=== PATIENT | female | born 1990 | race Caucasian/White ===

== ENCOUNTER 2020-02-09 14:14 | Emergency (ER) | payer BC, SELFPAY ==
[2020-02-09 14:24] VITALS: BP 147/95; PULSE 103; RESP 18; TEMP 38.5; O2SAT 100
--- NOTE | 2020-02-09 14:27 | ED.URI ---
HPI - URI/Sore Throat General Chief Complaint: Upper Respiratory Infection Stated Complaint: Sore throat Time Seen by Provider: 02/09/20 14:27 Source: patient and RN notes reviewed History of Present Illness HPI Narrative: Patient is a 30-year-old female who presents the urgent care with complaints of sore throat, fever and right ear pain. Patient states that it started morning. States that she has been taking DayQuil without much improvement. Denies of any known exposure to COVID. Denies of any nausea or vomiting. No other acute complaints. No acute distress noted. Patient read the plan of care. Related Data Home Medications Medication Instructions Recorded Confirmed ixekizumab [Taltz Autoinjector] 80 mg SUBCUT ONCE 02/09/20 02/09/20 norethindrone (contraceptive) 0.35 mg PO DAILY 02/09/20 02/09/20 Allergies Allergy/AdvReac Type Severity Reaction Status Date / Time No Known Allergies Allergy Mild Verified 02/09/20 14:21 Review of Systems Review of Systems: Narrative: CONSTITUTIONAL: Reports a fever EYES: Denies visual changes, redness, or discharge. ENT: Reports of sore throat and right ear pain CARDIOVASCULAR: Denies chest pain, palpitations, or edema. RESPIRATORY: Denies cough or dyspnea. GASTROINTESTINAL: Denies abdominal pain, nausea, vomiting, or diarrhea. GENITOURINARY: Denies dysuria or hematuria. SKIN: Denies rash or itching. MUSCULOSKELETAL: Denies back pain, joint pain, or myalgia. NEUROLOGIC: Denies headache, numbness, or weakness. All other systems reviewed are negative, except as documented in HPI. PMFSH Comments At the time of my signature, I reviewed and agree with the nursing past medical, surgical, social, and family history. There is no relevant family history pertinent to the patient complaint. Exam Narrative: Exam Narrative: GENERAL: This is a well-nourished, well-developed patient, in no apparent distress. HEAD: normocephalic, atraumatic. EYES: PERRL. Sclera clear/white. Vision is grossly intact. EARS: External ears normal, auditory canals clear and without drainage, moderately injected erythemic right TM, left TMs normal without perforation. Hearing grossly intact. NOSE: External nose normal with no obvious nasal discharge, nares without redness, no rhinorrhea. THROAT: Mucous membranes moist, moderate erythema noted posterior oropharynx with moderate postnasal drainage and mild bilateral tonsillar erythema and edema NECK: Neck supple SKIN: warm, intact with no suspicious lesions or rash, good texture and turgor. NEURO: awake, alert, and oriented to person, place and time. There were no obvious focal neurologic abnormalities. EXTREMITIES: No clubbing, cyanosis, or edema. Course Vital Signs Vital signs: Vital Signs Temperature 101.3 F H 02/09/20 14:24 Pulse Rate 103 H 02/09/20 14:24 Respiratory Rate 18 02/09/20 14:24 Blood Pressure 147/95 H 02/09/20 14:24 Pulse Oximetry 100 02/09/20 14:24 Temperature 101.3 F H 02/09/20 14:24 Pulse Rate 103 H 02/09/20 14:24 Respiratory Rate 18 02/09/20 14:24 Blood Pressure 147/95 H 02/09/20 14:24 Pulse Oximetry 100 02/09/20 14:24 Reviewed-patient is informed that they may have pre-hypertension or hypertension based on a blood pressure reading in the department. I recommend the patient call the primary care provider listed on their discharge instructions or a physician of their choice this week to arrange follow-up for further evaluation of possible pre-hypertension or hypertension. MDM - URI/Sore Throat MDM Narrative Medical decision making narrative: Reviewed lab results with the patient. She is aware that strep swab was positive. Advised patient to complete oral antibiotic regimen as prescribed. Amoxicillin will also treat right ear infection. Use an antihistamine such as Benadryl or Claritin in conjunction with Flonase nasal spray for symptom relief. Use Tylenol/ibuprofen as needed for fever pain. Increase fluid
== END 2020-02-09 14:49 | disposition home or self-care (01) ==
PROVIDERS: Emergency Provider Nurse Practitioner Family; PCP Family Medicine
DX: H66.91 Otitis media, unspecified, right ear (principal); J02.0 Streptococcal pharyngitis
CPT/HCPCS: 87880; 99213; G0463

== ENCOUNTER 2020-06-09 14:18 | Emergency (ER) | payer BC, SELFPAY ==
[2020-06-09 14:30] VITALS: BP 130/82; PULSE 74; RESP 16; TEMP 36.5; O2SAT 100
--- NOTE | 2020-06-09 14:39 | ED.EAR ---
HPI - Ear Problem General Chief complaint: Ear Stated complaint: Ear Pain Time Seen by Provider: 06/09/20 14:39 Source: patient and RN notes reviewed Mode of arrival: ambulatory Limitations: no limitations History of Present Illness HPI Narrative: 30-year-old female who presents to [facility] with complaints of pain to her right ear and her throat for the past 2 days. 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 Patient denies any fevers, cough, loss of taste or smell no nausea or myalgia symptoms. Patient states that she has had ear problems in the past and did have tubes when she was young. Patient states that she has not taken any OTC medications for her symptoms. MD Complaint: ear pain and other (sore throat) Location: right ear Duration: constant Severity: moderate Relieving factors: nothing Exacerbating factors: nothing Discharge from ear: Reports no Associated symptoms ear: rhinorrhea and other (sore throat) Treatment prior to arrival: none Related Data Home Medications Medication Instructions Recorded Confirmed ixekizumab [Taltz Autoinjector] 80 mg SUBCUT ONCE 02/09/20 02/09/20 norethindrone (contraceptive) 0.35 mg PO DAILY 02/09/20 02/09/20 Allergies Allergy/AdvReac Type Severity Reaction Status Date / Time No Known Allergies Allergy Mild Verified 02/09/20 14:21 Review of Systems Review of Systems: Narrative: CONSTITUTIONAL: Denies fever, chills, or sweats. EYES: Denies visual changes, redness, or discharge. ENT: positive for rhinorrhea, congestion, sore throat, right otalgia. CARDIOVASCULAR: Denies chest pain, palpitations, or edema. RESPIRATORY: Denies cough or dyspnea. GASTROINTESTINAL: Denies abdominal pain, nausea, vomiting, or diarrhea. GENITOURINARY: Denies dysuria or hematuria. SKIN: Chronic psoriasis rash or itching. MUSCULOSKELETAL: Denies back pain, joint pain, or myalgia. NEUROLOGIC: Denies headache, numbness, or weakness. PSYCHIATRIC: Denies anxiety or depression. All systems reviewed & are unremarkable except as noted in HPI and below PMFSH Past Medical History Medical History (Updated 06/10/20 @ 00:00 by Background Daemon) Otitis media Psoriasis Surgical History Surgical History (Updated 06/09/20 @ 14:52 by Fernanda Nielsen NP) History of placement of ear tubes Social History Social History (Updated 06/09/20 @ 14:52 by Fernanda Nielsen NP) Living arrangements: with family Gender identity (if verbalized by the patient): Female Comments At time of signature, agree with nursing past medical, surgical, social history. There is no relevant family history pertinent to the presenting complaint Exam Narrative: Exam Narrative: GENERAL: Well-appearing, well-nourished, and in no acute distress. HEAD: Normocephalic, atraumatic. EYES: PERRLA and EOMI. ENT: Nares mild redness,clear rhinorrhea no epistaxis. Mucous membranes moist.Right TM red and bulging with dull light reflex no drainage noted, Left TM normal with old scarring present good light reflex noted, no drainage, Throat red with no exudates or lesions, tonsils mildly enlarged, post nasal drainage noted. NECK: Supple. no lymphadenopathy CHEST: Clear to auscultation. No respiratory distress.SAO2 100% on room air HEART: Regular rate and rhythm. No murmur heard. Normal peripheral pulses. ABDOMEN: Soft, nontender, nondistended, normal active bowel sounds. EXTREMITIES: Normal range of motion. No edema. SKIN: Warm, dry, chronic psoriasis with flaking of scalp and forearms. NEURO: No focal deficits. Alert and oriented x3. Course Vital Signs Vital signs: Vital Signs Temperature 36.5 C 06/09/20 14:30 Pulse Rate 74 06/09/20 14:30 Respiratory Rate 16 06/09/20 14:30 Blood Pressure 130/82 06/09/20 14:30 Pulse Oximetry 100 06/09/20 14:30 Temperature 36.5 C 06/09/20 14:30 Pulse Rate 74
== END 2020-06-09 15:02 | disposition home or self-care (01) ==
PROVIDERS: Emergency Provider Registered Nurse; PCP Family Medicine
DX: H66.91 Otitis media, unspecified, right ear (principal); J02.9 Acute pharyngitis, unspecified
CPT/HCPCS: 87081; 87880; 99213; G0463

== ENCOUNTER 2022-10-25 14:19 | Outpatient (RCR) | payer OTHER, SELFPAY ==
--- NOTE | 2022-10-25 15:10 | PTOPEVAL1 ---
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 Reported Pain Level Pain Score 0: Self Report Additional Pain Score Comments Currently not hurting, when it hurt 2 weeks ago it was a 10 Assessment PT Clinical Summary Dex is a 32 year old female coming into the clinic with a diagnosis of L hip pain. Currently not in pain. Patient has negative special tests and does not appear to have an acute issue with the hip. Gave patient exercises based on tightness of muscles. Trying to hold off from therapy if not acute secondary to co-pay. Plan of Care PT Services Indicated No Treatment Frequency and discharged from skilled physical therapy. Duration These treatments will address the objective and functional deficits as defined above. The patient will be advanced safely and appropriately in order for the patient to progress towards his/her prior level of function. Additional exercises will be introduced and as well as a comprehensive home exercise program upon discharge, if needed, ?to ensure carryover of functional gains achieved in the clinic. This treatment plan has been reviewed and agreement upon by the patient.
== END 2022-10-26 09:12 | disposition home or self-care (01) ==
LOC: ANHPT 14:19
PROVIDERS: PCP Family Medicine; Visit Provider Physician Assistant
DX: M25.552 Pain in left hip (principal)
CPT/HCPCS: 97110; 97161